=== PATIENT | female | born 1990 | race Caucasian/White ===

== ENCOUNTER 2020-07-02 07:15 | Inpatient (IN) | payer OTHER ==
[2020-07-02] MEDS ORDERED: DEXTROSE 5%-LACTATED RINGERS 500 ML IV SCH (08:00)
[2020-07-02] MEDS ORDERED: DEXTROSE 5%-LACTATED RINGERS 1,000 ML IV SCH (10:00)
[2020-07-02] MEDS ORDERED: PROMETHAZINE HCL 25 MG/1 ML VIAL IVPB ONE (10:20)
[2020-07-02] MEDS ORDERED: BUTORPHANOL TARTRATE 2 MG/ML VIAL IVPB ONE (10:20)
[2020-07-02] MEDS ORDERED: BUTORPHANOL TARTRATE 2 MG/ML VIAL ONE (10:24)
[2020-07-02] MEDS ORDERED: PROMETHAZINE HCL 25 MG/1 ML VIAL ONE (10:24)
[2020-07-02] MEDS: ELECTROLYTE-148 SOLN 1,000 ML IV SCH ×2 (10:30→14:23)
[2020-07-02 10:54] VITALS: BMI 32.4
[2020-07-02] MEDS ORDERED: SODIUM CHLORIDE 100 ML IVPB ONE ×2 (10:55→14:20)
[2020-07-02] MEDS ORDERED: AMPICILLIN SODIUM 2 GM VIAL ONE (10:55)
[2020-07-02] MEDS ORDERED: AMPICILLIN - 2 GM in SODIUM CHLORIDE 100 ML IVPB ONE (11:00)
[2020-07-02 11:02] LABS: BASO % 0.4 % (0-2.0); EOS % 0.2 % (0-4.5); HEMATOCRIT 36.7 % (32.4-45.2); HEMOGLOBIN 12.3 GM/dL (10.7-15.3); LYMPH % 10.4 % (8-40); MCH 31.6 pg (25.7-33.7); MCHC 33.4 g/dl (32.0-36.0); MEAN CELL VOLUME 94.5 fl (80-96); MEAN PLT VOLUME 9.4 fl (7.5-11.1); MONO % 4.2 % (3.8-10.2); NEUT % 84.8 % (42.8-82.8); PLATELET COUNT 216 K/MM3 (134-434); RBC 3.89 M/mm3 (3.60-5.2); RDW 13.2 % (11.6-15.6); WHITE BLOOD COUNT 12.1 K/mm3 (4.0-10.0)
--- NOTE | 2020-07-02 11:02 | PD.OB.PROG ---
Past Medical History - Primary Care Physician Documenting Provider Type: Laborist - Admission Chief Complaint: contractions History of Present Illness: 29yo P0 at term presents with c/o contractions. No LOF, no vaginal bleeding. PNC with Dr. Metz History Source: Patient Limitations to Obtaining History: Language Barrier - Nursing Documentation Maternal Triage Index: Maternal Triage Index ( Priority 4, Non-urgent MFTI) Maternal Triage Index ( Priority 4, Non-urgent MFTI) Maternal Triage Index ( Priority 4, Non-urgent MFTI) Hemorrhage Risk Assessment: Risk Level Low Risk High Level Risk Factors for None Hemorrhage Medium Level Risk Factors for None of the above Hemorrhage Low Level Risk Factors for No previous uterine incis,Lemus Pregnaancy, Hemorrhage Four (4) or less previous,No known bleeding,No history of PPH,None of the above Nursing Documentation Reviewed: Yes - Past Medical History ...: 1 ...Para: 0 ...LMP: 10/05/19 ... Weeks Gestation by Dates: 38.3 ...EDC by Dates: 07/12/20 Heme/Onc: Denies/None Infectious Disease: Denies/None - Smoking History Smoking history: Never smoked Have you smoked in the past 12 months: No - Alcohol/Substance Use Hx Alcohol Use: No Review of Systems - Review of Systems Constitutional: reports: No Symptoms Eyes: reports: No Symptoms HENT: reports: No Symptoms Neck: reports: No Symptoms Cardiovascular: reports: No Symptoms Respiratory: reports: No Symptoms Gastrointestinal: reports: No Symptoms Genitourinary: reports: Pain Breasts: reports: No Symptoms Reported Musculoskeletal: reports: No Symptoms Integumentary: reports: No Symptoms Neurological: reports: No Symptoms Endocrine: reports: No Symptoms Hematology/Lymphatic: reports: No Symptoms Psychiatric: reports: No Symptoms Physical Exam - Obstetrical Vital Signs: Vital Signs Temperature 98.2 F 07/02/20 10:00 Pulse Rate 88 07/02/20 10:00 Respiratory Rate 20 07/02/20 10:00 Blood Pressure 122/78 07/02/20 10:00 O2 Sat by Pulse Oximetry (%) Constitutional: Yes: Well Nourished Eyes: Yes: WNL HENT: Yes: WNL - Abdominal Exam/OB Number of Fetuses: Single Presentation: Vertex Contractions: Yes Regularity: Regular Intensity: Mod/Strong Monitor Mode: External Heart Rate (range): 120 Category: I Accelerations: Uniform Decelerations: None - Vaginal Exam/OB Vaginal Exam Deferred: No Vaginal Bleeding: No Speculum Exam: No Dilatation (cm): 4.5 Effacement (%): 90 Amniotic Membrane Status: Intact Presentation: Vertex/Position Station: -2 - Physical Exam Musculoskeletal: Yes: WNL Extremities: Yes: WNL Edema: Yes Integumentary: Yes: WNL Assessment/Plan 29yo P0 at 38+ weeks in labor category 1 tracing pain management as needed Dr. Sims aware Dr. Weeks
[2020-07-02 11:11] LABS: INR 0.97 (0.83-1.09); PROTHROMBIN TIME (PATIENT) 11.4 SEC (9.7-13.0)
[2020-07-02 11:14] LABS: ACTIVATED PTT 25.8 SECONDS (25.2-36.5)
[2020-07-02 11:38] LABS: ALBUMIN 2.7 g/dl (3.4-5.0); BILIRUBIN,TOTAL 0.7 mg/dL (0.2-1); BLOOD UREA NITROGEN 7.3 mg/dL (7-18); CALCIUM 8.7 mg/dL (8.5-10.1); CREATININE 0.7 mg/dL (0.55-1.3); POTASSIUM 4.1 mmol/L (3.5-5.1); TOT PROT 6.6 g/dl (6.4-8.2)
[2020-07-02] MEDS ORDERED: FENTANYL/BUPIVACAINE/NS/PF - PCEA - 50 ML DISP.SYRIN EP ONE (13:08)
[2020-07-02] MEDS ORDERED: AMPICILLIN SODIUM 1 GM VIAL ONE (14:20)
[2020-07-02] MEDS ORDERED: LIDOCAINE HCL 1% PRESERVATIVE FREE - 30ML VIAL ONE (14:33)
[2020-07-02] MEDS ORDERED: OXYTOCIN 20 UNITS in 0.9% NS 20 UNIT/1,000 ML INFUS.BAG IV ONE ×2 (14:33→20:15)
[2020-07-02] MEDS ORDERED: AMPICILLIN - 1 GM in SODIUM CHLORIDE 100 ML IVPB SCH (15:00)
[2020-07-02] MEDS ORDERED: BENZOCAINE 20% 57 GM BOTTLE TP PRN (15:28)
[2020-07-02] MEDS ORDERED: METHYLERGONOVINE MALEATE 0.2 MG/1 ML AMP IM PRN (15:28)
[2020-07-02] MEDS ORDERED: BISACODYL 10 MG SUPP.RECT RC PRN (15:28)
[2020-07-02] MEDS ORDERED: WITCH HAZEL 50% (TUCKS) 40 PAD/JAR PAD TP PRN (15:28)
[2020-07-02] MEDS ORDERED: BENZOCAINE 28 GM HEMORRHOIDAL OINTMENT TP PRN (15:28)
[2020-07-02] MEDS ORDERED: OXYTOCIN 20 UNITS in 0.9% NS 20 UNIT/1,000 ML INFUS.BAG IV SCH (15:30)
--- NOTE | 2020-07-02 15:31 | PN ---
Delivery - Delivery Vaginal Delivery: Spontaneous (cx full , median episiotomy done head delivered , nasopharynx suctioned , ant and post shoulder with no difficulty. live baby boy, 9/9, placenta complete ,median episiotomy with 2o chromic , baby bonded with mother , no complication ,ebl 300cc) Type of Anesthesia: Local, Epidural Episiotomy/Laceration: Midline Delivery, Single - 1 Minute Total Score: 9 5 Minutes Total Score: 9 - Feeding Plan Initial Plan: Exclusive throughout hospitalization
[2020-07-02 17:17] LABS: CORD BASE EXCESS -6.3 mmol/L (0-2); CORD HCO3 21.4 mmHg (20-29); CORD PCO2 49.7 mmHg (30-78); CORD pH 7.251 (7.14-7.44)
[2020-07-02] MEDS: FERROUS SO4 325 MG TABLET (FP) PO SCH (21:27)
[2020-07-02] MEDS: ACETAMINOPHEN 325 MG TABLET (FP) PO PRN (21:27)
[2020-07-02] MEDS: IBUPROFEN 600 MG TABLET (FP) PO PRN (21:28)
[2020-07-03] MEDS: IBUPROFEN 600 MG TABLET (FP) PO PRN ×2 (02:15→13:08)
[2020-07-03] MEDS: ACETAMINOPHEN 325 MG TABLET (FP) PO PRN ×2 (02:16→13:08)
[2020-07-03 08:19] LABS: BASO % 0.4 % (0-2.0); EOS % 0.6 % (0-4.5); HEMATOCRIT 31.1 % (32.4-45.2); HEMOGLOBIN 10.4 GM/dL (10.7-15.3); LYMPH % 12.5 % (8-40); MCH 31.8 pg (25.7-33.7); MCHC 33.5 g/dl (32.0-36.0); MEAN CELL VOLUME 95.1 fl (80-96); MEAN PLT VOLUME 9.4 fl (7.5-11.1); MONO % 5.4 % (3.8-10.2); NEUT % 81.1 % (42.8-82.8); PLATELET COUNT 186 K/MM3 (134-434); RBC 3.27 M/mm3 (3.60-5.2); RDW 13.3 % (11.6-15.6); WHITE BLOOD COUNT 13.2 K/mm3 (4.0-10.0)
[2020-07-03] MEDS: PRENATAL VITAMINS W/ FOLIC ACID TABLET (FP) PO SCH (10:09)
[2020-07-03] MEDS: FERROUS SO4 325 MG TABLET (FP) PO SCH ×2 (10:09→21:09)
--- NOTE | 2020-07-03 18:25 | PN ---
Post Note - Post Date of Delivery: 07/02/20 Post Day: 1 Vital Signs: Vital Signs - 24 hr 07/02/20 07/03/20 07/03/20 20:50 02:00 06:00 Temperature 99.5 F 99 F 98.6 F Pulse Rate 84 86 81 Respiratory 18 18 18 Rate Blood Pressure 125/73 102/67 104/67 O2 Sat by Pulse Oximetry (%) 07/03/20 07/03/20 10:00 13:12 Temperature 98.0 F 98.2 F Pulse Rate 72 98 H Respiratory 18 18 Rate Blood Pressure 100/54 L 109/59 L O2 Sat by Pulse 98 Oximetry (%) Labs: Laboratory Results - last 24 hr 07/02/20 07/02/20 07/03/20 10:05 10:40 07:45 WBC 13.2 H RBC 3.27 L Hgb 10.4 L Hct 31.1 L D MCV 95.1 MCH 31.8 MCHC 33.5 RDW 13.3 Plt Count 186 MPV 9.4 Absolute Neuts (auto) 10.7 H Neutrophils % 81.1 Lymphocytes % 12.5 D Monocytes % 5.4 Eosinophils % 0.6 D Basophils % 0.4 Nucleated RBC % 0 COVID-19 (MICHELLE) Not detected Hep Bs Antigen Negative - Subjective Subjective: No Complaints - Objective Afebrile: Yes Breast: Not engorged Abdomen: Soft, Non-tender Uterus: Fundus firm Vagina: Scant lochia Extremities: Non-tender - Assessment/Plan (1) Normal vaginal delivery Assessment: S/P Normal Plan: Routine Care
--- NOTE | 2020-07-03 18:30 | HP ---
Past Medical History - Primary Care Physician PCP:: Kiah Sims - Admission Chief Complaint: labor History of Present Illness: 29 yo ega 38 week admitted in labor History Source: Patient Limitations to Obtaining History: No Limitations - Past Medical History ...: 1 ...Para: 0 ...LMP: 10/05/19 ... Weeks Gestation by Dates: 38.3 ...EDC by Dates: 07/12/20 - Past Surgical History Past Surgical History: Yes: None Hx Myomectomy: No Hx Transabdominal Cerclage: No - Smoking History Smoking history: Never smoked Have you smoked in the past 12 months: No - Alcohol/Substance Use Hx Alcohol Use: No History of Substance Use: reports: None - Social History Usual Living Arrangement: Yes: With Spouse Home Medications - Allergies Allergies/Adverse Reactions: Allergies Allergy/AdvReac Type Severity Reaction Status Date / Time No Known Allergies Allergy Verified 07/02/20 08:45 - Home Medications Home Medications: Ambulatory Orders Tablet 1 tab PO DAILY 07/02/20 Ibuprofen [Motrin -] 600 mg PO QID #28 tablet 07/03/20 Miscellaneous Medical Supply [Breast Pump, Electronic] 1 each NR ASDIR #1 unit 07/03/20 Physical Exam - Maternity Vital Signs: Vital Signs Temperature 98.2 F 07/03/20 13:12 Pulse Rate 98 H 07/03/20 13:12 Respiratory Rate 18 07/03/20 13:12 Blood Pressure 109/59 L 07/03/20 13:12 O2 Sat by Pulse Oximetry (%) 98 07/03/20 10:00 Constitutional: Yes: Well Nourished, No Distress - Abdominal Exam/OB Presentation: Vertex Contractions: Yes Regularity: Regular Monitor Mode: External Heart Rate Location: [facility] Category: I - Labs Lab Results: CBC, BMP 07/03/20 07:45 07/02/20 10:01 Hemorrhage Risk Assessment - Risk Factors Risk Score: 0 Risk Level: Low Risk Problem List - Problems (1) Normal vaginal delivery Code(s): O80 - ENCOUNTER FOR FULL-TERM UNCOMPLICATED DELIVERY (2) Labor established Code(s): NHY3965 - Assessment/Plan iup at 38 week labor plan anticipate vaginal delivery
[2020-07-03] MEDS ORDERED: SENNOSIDES/DOCUSATE COMBO (SENNA PLUS) TABLET (UD) PO PRN (22:00)
[2020-07-04] MEDS: ACETAMINOPHEN 325 MG TABLET (FP) PO PRN (04:16)
[2020-07-04] MEDS: IBUPROFEN 600 MG TABLET (FP) PO PRN (04:16)
--- NOTE | 2020-07-04 07:43 | DS ---
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 Vital Signs: Vital Signs Temperature 98.2 F 07/03/20 22:00 Pulse Rate 100 H 07/03/20 22:00 Respiratory Rate 18 07/03/20 22:00 Blood Pressure 126/80 07/03/20 22:00 O2 Sat by Pulse Oximetry (%) 98 07/03/20 10:00 Constitutional: Yes: Well Nourished, No Distress, Calm Eyes: Yes: WNL, Conjunctiva Clear, EOM Intact HENT: Yes: WNL, Atraumatic, Normocephalic Neck: Yes: WNL, Supple, Trachea Midline Cardiovascular: Yes: WNL, Regular Rate and Rhythm Respiratory: Yes: WNL, Regular, CTA Bilaterally Gastrointestinal: Yes: WNL ...Rectal Exam: Yes: WNL Renal/: Yes: WNL ....Post : Yes: Uterus firm, Uterus non-tender, Slight lochia rubra Breast(s): Yes: WNL Musculoskeletal: Yes: WNL Extremities: Yes: WNL Edema: No Integumentary: Yes: WNL Neurological: Yes: WNL, Alert, Oriented ...Motor Strength: WNL Psychiatric: Yes: WNL, Alert, Oriented Labs: CBC, BMP 07/03/20 07:45 07/02/20 10:01 Delivery - Delivery Vaginal Delivery: Spontaneous (cx full , median episiotomy done head delivered , nasopharynx suctioned , ant and post shoulder with no difficulty. 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: No Gender: Male Position: Right, OA Total Hours ROM (Hrs/Mins): 1/10 - 1 Minute Total Score: 9 5 Minutes Total Score: 9 - Ethel Feeding Plan Initial Plan: Exclusive throughout hospitalization Discharge Summary Problems reviewed: Yes Reason For Visit: LABOR Current Active Problems Labor established (Acute) Normal vaginal delivery (Acute) Procedures: Principal: Hospital Course: no complication Plan of Treatment: follow up 4 weeks ,Dr Crowell Condition: Good - Instructions Diet, Activity, Other Instructions: if fever, heavy vaginal bleeding fever call MD Referrals: Alycia Metz MD [Staff Physician] - Disposition: HOME - Home Medications Comprehensive Discharge Medication List: Ambulatory Orders Tablet 1 tab PO DAILY 07/02/20 Ibuprofen [Motrin -] 600 mg PO QID #28 tablet 07/03/20 Miscellaneous Medical Supply [Breast Pump, Electronic] 1 each NR ASDIR #1 unit 07/03/20
[2020-07-04] MEDS: FERROUS SO4 325 MG TABLET (FP) PO SCH (09:46)
[2020-07-04] MEDS: PRENATAL VITAMINS W/ FOLIC ACID TABLET (FP) PO SCH (09:46)
[2020-07-04 12:44] VITALS: BP 118/68; PULSE 78; TEMP 98.4
== END 2020-07-04 13:45 | disposition home or self-care (01) | DRG 560 ==
LOC: JDEL 07:15 → JLDR 09:45 → J3W 20:50
PROVIDERS: ADMIT Obstetrics & Gynecology; ATTEND Obstetrics & Gynecology
PROC: 10E0XZZ Delivery of Products of Conception, External Approach (ICD-10-PCS; principal; 2020-07-02)
PROC: 0W8NXZZ Division of Female Perineum, External Approach (ICD-10-PCS; 2020-07-02)
DX: O80 Encounter for full-term uncomplicated delivery (principal); Z3A.38 38 weeks gestation of pregnancy; Z37.0 Single live birth
CPT/HCPCS: 36415; 36600; 59409; 80053; 82803; 85025; 85610; 85730; 86762; 86780; 86850; 86900; 86901; 87340; 87389; C9803; U0003

== ENCOUNTER 2021-03-29 12:34 | Emergency (ER) | payer OTHER ==
[2021-03-29 13:02] VITALS: BP 126/75; PULSE 74; TEMP 98.1; BMI 31.4
[2021-03-29 14:56] LABS: EPI CELLS 24 /uL (0-25.1); HYALINE CASTS 1 /uL (0-3.1); URINE APPEARANCE CLEAR; URINE BACTERIA 121 /uL (0-1359); URINE BILIRUBIN NEGATIVE (NEGATIVE); URINE COLOR YELLOW; URINE GLUCOSE (UA) NEGATIVE (NEGATIVE); URINE KETONE NEGATIVE (NEGATIVE); URINE LEUK ESTERASE NEGATIVE (NEGATIVE); URINE NITRITE NEGATIVE (NEGATIVE); URINE PROTEIN NEGATIVE (NEGATIVE); URINE RBC 63 /uL (0-23.9); URINE UROBILINOGEN 0.2 mg/dL (0.2-1.0); URINE WBC 8 /uL (0-25.8)
== END 2021-03-29 16:30 | disposition home or self-care (01) ==
LOC: JER 12:34
DX: N20.0 Calculus of kidney (principal)
CPT/HCPCS: 74176-TC; 81003; 84703; 87086; 99285-25

== ENCOUNTER 2021-08-17 18:04 | Emergency (ER) | payer OTHER ==
[2021-08-17 18:12] VITALS: BP 130/81; PULSE 77; TEMP 98.3; BMI 28.7
[2021-08-17] MEDS ORDERED: METHOCARBAMOL 500 MG TABLET PO ONE (18:20)
[2021-08-17] MEDS ORDERED: KETOROLAC TROMETHAMINE 30 MG/1 ML VIAL IM ONE (18:20)
[2021-08-17] MEDS ORDERED: KETOROLAC TROMETHAMINE 30 MG/1 ML VIAL ONE (18:22)
[2021-08-17] MEDS ORDERED: METHOCARBAMOL 500 MG TABLET ONE (18:22)
[2021-08-17 19:14] LABS: EPI CELLS >36 /uL (0-25.1); HYALINE CASTS 2 /uL (0-3.1); URINE APPEARANCE CLOUDY; URINE BACTERIA 129 /uL (0-1359); URINE BILIRUBIN NEGATIVE (NEGATIVE); URINE COLOR YELLOW; URINE GLUCOSE (UA) NEGATIVE (NEGATIVE); URINE KETONE TRACE (NEGATIVE); URINE LEUK ESTERASE NEGATIVE (NEGATIVE); URINE NITRITE NEGATIVE (NEGATIVE); URINE PROTEIN NEGATIVE (NEGATIVE); URINE UROBILINOGEN 0.2 mg/dL (0.2-1.0); URINE WBC 31 /uL (0-25.8)
[2021-08-17 19:25] LABS: HCG,QUALITATIVE URINE Negative
[2021-08-17 19:56] LABS: URINE RBC 21 /uL (0-23.9)
== END 2021-08-17 19:52 | disposition home or self-care (01) ==
LOC: JERFT 18:04
PROC: 3E023GC Introduction of Other Therapeutic Substance into Muscle, Percutaneous Approach (ICD-10-PCS; principal; 2021-08-17)
DX: M62.830 Muscle spasm of back (principal); R31.21 Asymptomatic microscopic hematuria
CPT/HCPCS: 81003; 84703; 87086; 99284-25